=== PATIENT | male | born 1985 | race Caucasian/White ===

== ENCOUNTER 2017-01-14 04:19 | Emergency (ER) | payer SELFPAY ==
[2017-01-14] MEDS ORDERED: methylPREDNISolone 125 MG* 2 ML VIAL IV ONE (04:30)
[2017-01-14] MEDS ORDERED: Famotidine IV* 10 MG/ML 2 ML (20 mg) IV SLOW PU ONE (04:30)
[2017-01-14] MEDS ORDERED: EPINEPHrine AMP 1 MG/ML SUBCUT ONE (04:30)
[2017-01-14] MEDS ORDERED: diPHENhydraMINE IV* 50 MG/ML 1 ml VIAL (BENADRYL) IV ONE (04:30)
--- NOTE | 2017-01-14 04:49 | ED ---
Andrade Espinosa Rebecca, scribed for Leo Briceno MD on 01/14/17 at 0438 . Allergic Reaction/Systemic - HPI Summary HPI Summary: Pt is a 31 y/o M who presents to ED c/o tongue swelling and diffuse rash. Rash is described as "red blotches all over" his skin and began about 1.5 weeks ago. Tongue swelling began last night and he woke up with sx are prominent as they are right now. 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 Unsure of the cause of symptoms. - History of Current Complaint Chief Complaint: EDAllergicReaction Time Seen by Provider: 01/14/17 04:28 Hx Obtained From: Patient Onset/Duration: Still Present Severity Currently: None Pain Intensity: 0 Pain Scale Used: 0-10 Numeric Location: Diffuse Character: Hives - Diffuse, erythematous blotching Aggravating Factor(s): Nothing Alleviating Factor(s): Nothing Associated Signs And Symptoms: Positive: Other: - Tongue swelling - Allergies/Home Medications Allergies/Adverse Reactions: Allergies Allergy/AdvReac Type Severity Reaction Status Date / Time Amoxicillin Allergy Anaphylatic Verified 01/14/17 04:21 Shock Penicillins Allergy Anaphylatic Verified 01/14/17 04:21 Shock PMH/Surg Hx/FS Hx/Imm Hx Endocrine/Hematology History: Denies: Hx Diabetes Cardiovascular History: Denies: Hx Coronary Artery Disease, Hx Hypertension Infectious Disease History: No Infectious Disease History: Denies: Traveled Outside the [place] in Last 30 Days - Family History Known Family History: Positive: Cardiac Disease - Social History Alcohol Use: None Substance Use Type: Reports: Marijuana Smoking Status (MU): Current Every Day Smoker Review of Systems Negative: Fever Positive: Other - Tongue swelling Positive: Rash - Diffuse, erythematous blotching over the skin All Other Systems Reviewed And Are Negative: Yes Physical Exam Triage Information Reviewed: Yes Vital Signs On Initial Exam: Initial Vitals Temp Pulse Resp BP Pulse Ox 97.3 F 85 18 126/73 100 01/14/17 04:21 01/14/17 04:21 01/14/17 04:21 01/14/17 04:21 01/14/17 04:21 Vital Signs Reviewed: Yes Appearance: Positive: No Pain Distress Skin: Positive: Warm Head/Face: Positive: Normal Head/Face Inspection Eyes: Positive: ANNA ENT: Positive: Other - marked tongue swelling Neck: Positive: Supple, Nontender Respiratory/Lung Sounds: Positive: Breath Sounds Present Cardiovascular: Positive: RRR Abdomen Description: Positive: Nontender, Soft Bowel Sounds: Positive: Present Musculoskeletal: Positive: Strength/ROM Intact Neurological: Positive: Alert, Oriented to Person Place, Time Psychiatric: Positive: Affect/Mood Appropriate Diagnostics - Vital Signs Vital Signs Temp Pulse Resp BP Pulse Ox 01/14/17 04:21 97.3 F 85 18 126/73 100 - Laboratory Lab Statement: Any lab studies that have been ordered have been reviewed, and results considered in the medical decision making process. Allergic Reaction Course/Dx - Course Assessment/Plan: Pt is a 31 y/o M who presents to ED c/o tongue swelling and diffuse rash. Rash is described as "red blotches all over" his skin and began about 1.5 weeks ago. Tongue swelling began last night and he woke up with sx are prominent as they are right now. 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 Unsure of the cause of symptoms. In the ED course, pt received Epi, Pepcid, Benadryl, Solu-Medrol. Pt will be signed out, pending disposition, awaiting observation. Elevated BP noted and advised to f/u with PCP. - Diagnoses Provider Diagnoses: Angioedema Discharge - Discharge Plan Condition: Stable Disposition: OTHER Discharge Disposition Comment: Pt will be signed out, pending disposition, awiaitng observation Referrals: Non Staff,Doctor [Primary Care Provider] - The documentation as recorded by the Andrade lyons Rebecca accurately reflects the service I personally performed and the decisions made by me, Leo Briceno MD.
[2017-01-14 08:29] LABS: Mean Platelet Volume 8 um3 (7.4-10.4)
[2017-01-14 08:31] LABS: Hematocrit 46 % (42-52); Hemoglobin 15.4 g/dl (14.0-18.0); Mean Corpuscular HGB Conc 34 g/dl (31-36); Mean Corpuscular Hemoglobin 31 pg (27-31); Mean Corpuscular Volume 92 fL (80-94); Red Blood Count 4.95 10^6/ul (4.0-5.4); Red Cell Distribution Width 14 % (10.5-15); White Blood Count 12.1 10^3/ul (3.5-10.8)
--- NOTE | 2017-01-14 08:36 | ED ---
Al Espinosa Angela, scribed for Eleazar Michelle on 01/14/17 at 0823 . Progress - Progress Note Progress Note: Pt is a 31 y/o M who presents to ED c/o diffuse rash x1.5 weeks and tongue swelling since last night. This pt was signed out from Dr. Briceno, pending disposition, awaiting observation. The pt will be admitted to [facility] in stable condition with a diagnosis of angioedema, allergic reaction. Re-Evaluation - Re-Evaluation First Eval Re-Evaluation Time: 08:24 Comment: Pt's tongue is still swollen. Pt will be admitted to [facility]. Course/Dx - Diagnoses Provider Diagnoses: Angioedema, Allergic reaction - Provider Notifications Discussed Care Of Patient With: Sheridan Boucher Time Discussed With Above Provider: 08:27 Instructed by Provider To: Other - Discussed the pt's case with Dr. Boucher. She has agreed to admit the pt. The documentation as recorded by the Al lyons Angela accurately reflects the service I personally performed and the decisions made by , Eleazar Michelle.
[2017-01-14 08:55] LABS: BUN/Creatinine Ratio 13.6 (8-20); Calcium 9.2 mg/dL (8.6-10.3); EGFR African American 144.9 (>60); EGFR Non-African American 112.7 (>60); Potassium 3.8 mmol/L (3.5-5.0); Total Bilirubin 0.4 mg/dL (0.2-1.0)
--- NOTE | 2017-01-14 10:45 | ED ---
Al Espinosa Angela, ayoed for Eleazar Michelle on 01/14/17 at 1009 . Progress - Progress Note Progress Note: Pt is a 31 y/o M who presents to ED c/o diffuse rash x1.5 weeks and tongue swelling since last night. This pt was signed out from Dr. Briceno, pending disposition, awaiting observation. The pt will be admitted to [facility] in stable condition with a diagnosis of angioedema, allergic reaction. ADDENDUM: Dr. Boucher (hospitalist) came to the ED and saw the pt. The pt refused admission upon speaking with Dr. Boucher. On re-evaluation at 10:00, pt reports he is feeling well. We will discharge the pt in stable condition with a diagnosis of angioedema, allergic reaction. Pt was given strict ED return precautions. Re-Evaluation - Re-Evaluation First Eval Re-Evaluation Time: 08:24 Comment: Pt's tongue is still swollen. Pt will be admitted to [facility]. Second Eval Re-Evaluation Time: 10:00 Comment: Pt is feeling better and would like to be discharged. Course/Dx - Course Course Of Treatment: Dr. Boucher came to see the pt in the ED and he refused admission. Pt will be discharged with diagnosis of angioedema, allergic reaction and strict return precautions were given. - Diagnoses Provider Diagnoses: Angioedema, Allergic reaction - Provider Notifications Time Discussed With Above Provider: 08:27 Instructed by Provider To: Other - Discussed the pt's case with Dr. Boucher. She has agreed to admit the pt. 0930: Dr. Boucher came to see the pt in the ED, pt refused admission. The documentation as recorded by the Al lyons Angela accurately reflects the service I personally performed and the decisions made by , Eleazar Michelle.
[2017-01-14 10:59] VITALS: BP 117/82
== END 2017-01-14 10:58 ==
LOC: ED 04:19
DX: T78.3XXA Angioneurotic edema, initial encounter (principal); T78.40XA Allergy, unspecified, initial encounter; X58.XXXA Exposure to other specified factors, initial encounter
CPT/HCPCS: 36415; 80053; 85025; 96374; 96375; 99284; J0171; J1200; J2930